=== PATIENT | female | born 1975 | race Caucasian/White ===

== ENCOUNTER 2020-12-10 16:16 | Day surgery (SDC) | payer BC, SELFPAY ==
[~2020-12-10] VITALS: Ht 160 cm; Wt 70.5 kg
[2020-12-10] VITALS (8 sets, daily range): BP systolic 112–122; BP diastolic 68–82
[2020-12-10 14:01] LABS: BASOPHILS % (AUTO) 0.6 % (0-1); EOSINOPHILS # (AUTO) 0.1 X10'3 (0-0.9); LYMPHOCYTES # (AUTO) 2.3 X10'3 (1.1-4.8); LYMPHOCYTES % (AUTO) 30.8 % (21-51); MEAN CORPUSCULAR HEMOGLOBIN 30.5 PG (27.0-31.0); MEAN CORPUSCULAR HGB CONC 33.7 g/dL (33.0-36.5); MEAN CORPUSCULAR VOLUME 90.4 FL (78-98); MEAN PLATELET VOLUME 6.7 FL (7.4-10.4); MONOCYTES # (AUTO) 0.5 X10'3 (0-0.9); MONOCYTES % (AUTO) 6.2 % (2-12); NEUTROPHILS # (AUTO) 4.5 X10'3 (1.8-7.7); NEUTROPHILS % (AUTO) 61.4 % (42-75); PRE OP HEMATOCRIT 42.3 % (35.0-45.0); PRE OP HEMOGLOBIN 14.3 g/dL (12.0-16.0); PRE OP PLATELET COUNT 276 X10'3 (140-440); RED BLOOD COUNT 4.68 X10'6 (4.20-5.60); RED CELL DISTRIBUTION WIDTH 12.6 % (11.5-14.5)
[2020-12-10 14:18] LABS: ALBUMIN 4.2 G/DL (3.4-5.0); ALKALINE PHOSPHATASE 45 IU/L (46-116); BLOOD UREA NITROGEN 13 MG/DL (7-18); BUN/CREATININE RATIO 16.5 (6.6-38.0); CALCIUM 8.5 MG/DL (8.5-10.1); CHLORIDE 106 MMOL/L (99-107); CREATININE 0.79 MG/DL (0.40-0.90); PRE OP ALT 30 U/L (30-65); PRE OP ANION GAP 11 (8-16); PRE OP AST 25 U/L (10-37); PRE OP BILIRUB, TOTAL 0.8 MG/DL (0.0-1.0); PRE OP GLUCOSE 94 MG/DL (70-104); PRE OP POTASSIUM 3.8 MMOL/L (3.4-5.1); PRE OP SODIUM 143 MMOL/L (135-145); TOTAL CARBON DIOXIDE 26.4 MMOL/L (24-32); TOTAL PROTEIN 8.4 G/DL (6.4-8.2); eGFR 78 ML/MIN
--- NOTE | 2020-12-10 16:12 | NUR ---
PT AROUSABLE VSS NO DISTRESS DENIES PAIN, SOFT CAST TO RIGHT FOOT CDI +CMS CONT TO MONTIOR Addendum: 12/10/20 at 1631 by Margaux Mccall RN Amended: Links added.
[~2020-12-10 16:16] MED LIST: HYDROcodone/acetaminophen 10/325mg tab PO PRN; LIDOcaine 1%/PF 5ML 10 MG/ML VIAL ONE; acetaminophen 1,000mg/100ml IV 100 ML IV ONE; cefazolin/dext.iso 2gm/100ml IV ONE; cloNIDine hcl/PF 100mcg/ml inj ONE; dexamethasone sod phosphate 4mg/ml inj. ONE; ePHEDrine 50MG/ML INJ. ONE; famotidine 20mg tablet PO ONE; fentaNYL/PF 50MCG/1 ML 2ML syringe ONE; glycopyrrolate 0.2mg/ml inj ONE; meperidine/PF 25mg/ml syringe IV PRN; midazolam 1 mg/ML 2ml injection ONE; morphine 2 MG/ML inj. syringe IV PRN; morphine 4 MG/ML inj SYRINge IV PRN; neostigmine methylsulfate 1 MG/ML 10ml vial ONE; ondansetron/PF 4mg/2ml inj IV PRN; ondansetron/PF 4mg/2ml inj ONE; proCHLORperazine 10 MG/2 ml inj IV PRN; propofol inj 20 ML IV ONE; ringers solution, lacted 1,000 ML IV SCH; rocuronium 10mg/ml inj IV ONE; sevoflurane 250ml liquid IH ONE
--- NOTE | 2020-12-10 16:46 | NUR ---
PT MORE AWAKE VSS NO DISTRESS GUNNAR PO'S AT BEDSIDE DC INSTR GIVEN NO ?'S OR CONCERNS. mEETS CRITERIA TO DC HOME Addendum: 12/10/20 at 1647 by Margaux Mccall RN Amended: Links added.
--- NOTE | 2020-12-10 17:09 | NUR ---
PT SAT UP TO SIDE OF BED CO NAUSEA ZOFRAN 4 MG IV GIVEN Addendum: 12/10/20 at 1710 by Margaux Mccall RN Amended: Links added.
== END 2020-12-10 17:22 | disposition home or self-care (01) ==
LOC: PAS 16:16
PROVIDERS: ATTEND Orthopaedic Surgery
DX: S86.011A Strain of right Achilles tendon, initial encounter (principal); G89.18 Other acute postprocedural pain; Z98.890 Other specified postprocedural states; Z20.822 Contact with and (suspected) exposure to COVID-19; X58.XXXA Exposure to other specified factors, initial encounter; Y93.73 Activity, racquet and hand sports; Y92.89 Other specified places as the place of occurrence of the external cause; Y99.8 Other external cause status
CPT/HCPCS: 27650; 36415; 64450; 76942; 80053; 85025; 87635; C9803; J0131; J0735; J1100; J2250; J2405; J2704; J2710; J3010; J7120; Z7506; Z7508; Z7512; A4215; A4618; A6449; A7000; J3490